=== PATIENT | female | born 1960 | race Caucasian/White ===

== ENCOUNTER 2018-03-28 09:09 | Emergency (ER) | payer MEDICARE, OTHER ==
[~2018-03-28] VITALS: Ht 162.6 cm; Wt 99.8 kg
[~2018-03-28 09:09] MED LIST: ABILIFY10 MG PO; ACYCLOVIR 400400 M1 PO; ACYCLOVIR 400400 MG; ALBUTEROL2.5 MG/31 INH; ALTOPREV; ALTOPREV20 MG PO; AMOXICILLIN 50500 MG PO; ASPIRIN BUFFER325 MG PO; ATROVENT HFA14 GM INH; AZITHROMYC200 MG/52 PO; BREO ELLIPTA 11 EACH INH; CALCIUM 500 +1 EAC5 PO; CELEBREX; CELEBREX 200 M200 M1 PO; CLONAZEPAM 0.50.5 M1 PO; CLOPIDOGREL; COMBIVENT INH; CYMBALTA; CYMBALTA PO; CYMBALTA30 MG PO; EFFEXOR XR75 MG PO; ESTRACE1 MG PO; GENTAMICIN SU3 MG/ML OP; HYDROCODON-ACE1 EAC7 PO; HYDROCODONE-AP1 EAC6 PO; HYOSCYAMINE0.375 M2 PO; IBUPROFEN 400400 M2 PO; IBUPROFEN 800800 M1 PO; IBUPROFEN 800800 MG PO; KEFLEX500 M1 PO; LEVSIN PO; LINZESS145 MCG PO; LOVASTAT20 PO; LOVASTATIN; MEDROLDOSEPACK PO; MUCINEX TA600 MG/TA1 PO; MULTIVITAMINS1 EAC7 PO; NEBULIZER MISCELL; NEXIUM; NORCO 5-325 TA1 EACH PO; OMEPRAZOLE40 MG PO; PENICILLIN VK500 MG PO; PERCOCET 5-3251 EACH PO; PREDNISONE 10 M10 M1 PO; PREDNISONE 10 M10 MG PO; PREDNISONE 20 M20 M1 PO; PREMARIN; PREMARIN0.625 MG PO; PREVACID PO; PROAIR HFA8.5 GM INH; SENNA PO; SENNA8.6 MG PO; SINGULAIR 10 MG10 M1 PO; TORADOL 10 MG T10 MG PO; TRAZADONE; TRAZODONE HCL100 MG PO; ULTRAM ER300 MG PO; VENTOLIN HFA 1818 GM INH; VENTOLIN17 GM INH; VICODIN 5-5001 EACH PO; VITAMINC500 PO; WELLBUTRIN XL150 M1; WELLBUTRIN XL300 MG PO; ZANTAC; ZANTAC 150MG T150 M1 PO; ZOFRAN ODT4 MG PO; ZOFRAN8 MG PO; ZPAK PO; [UNRECOGNIZED DRUG - REMARK]
[2018-03-28] MEDS ORDERED: PREDNISONE 20 M20 M1 PO (09:25)
[2018-03-28] MEDS ORDERED: ZPAK PO (09:25)
[2018-03-28 09:34] VITALS: BP 117/57
== END 2018-03-28 09:35 | disposition home or self-care (01) ==
LOC: M.ERS 09:09
DX: J40 Bronchitis, not specified as acute or chronic (principal); Z90.49 Acquired absence of other specified parts of digestive tract; Z90.710 Acquired absence of both cervix and uterus; Z88.5 Allergy status to narcotic agent; Z88.8 Allergy status to other drugs, medicaments and biological substances; Z87.891 Personal history of nicotine dependence

== ENCOUNTER 2018-09-18 15:43 | Emergency (ER) | payer MEDICARE, OTHER ==
[~2018-09-18] VITALS: Ht 160 cm; Wt 94.8 kg
[2018-09-18] MEDS ORDERED: GENTAMICIN OPH3.5 GM OPHTHALMIC (16:37)
[2018-09-18 18:29] VITALS: BP 115/65
== END 2018-09-18 18:30 | disposition home or self-care (01) ==
LOC: M.ERS 15:43
DX: H11.32 Conjunctival hemorrhage, left eye (principal); R51 Headache; J44.9 Chronic obstructive pulmonary disease, unspecified; Z90.49 Acquired absence of other specified parts of digestive tract; Z90.710 Acquired absence of both cervix and uterus; Z87.891 Personal history of nicotine dependence; Z88.5 Allergy status to narcotic agent; Z88.8 Allergy status to other drugs, medicaments and biological substances

== ENCOUNTER 2020-03-19 16:51 | Emergency (ER) | payer MEDICARE ==
[~2020-03-19] VITALS: Ht 162.6 cm; Wt 72.6 kg
[~2020-03-19 16:51] MED LIST changes: +GENTAMICIN OPH3.5 GM OPHTHALMIC
[2020-03-19] MEDS ORDERED: WELLBUTRIN SR150 MG PO (17:04)
[2020-03-19] MEDS ORDERED: AMITIZA 24 MCG24 MC1 PO (17:05)
[2020-03-19] MEDS ORDERED: LOVASTAT20 PO (17:05)
[2020-03-19] MEDS ORDERED: LEVO-T25 MCG PO (17:05)
[2020-03-19] MEDS ORDERED: OMEPRAZOLE 20 M20 M1 PO (17:05)
[2020-03-19] MEDS ORDERED: EFFEXOR XR150 MG PO (17:06)
[2020-03-19] MEDS ORDERED: 24HR ALLERGY REL5 MG PO (17:06)
[2020-03-19] MEDS ORDERED: DESYREL150 MG PO (17:07)
[2020-03-19 17:15] LABS: URINE BILIRUBIN NEGATIVE (Negative); URINE BLOOD TRACE (Negative); URINE CLARITY CLEAR; URINE COLOR YELLOW; URINE GLUCOSE-RANDOM NEGATIVE (Negative); URINE KETONES NEGATIVE (Negative); URINE LEUKOCYTES-REFLEX NEGATIVE (Negative); URINE NITRITE-REFLEX NEGATIVE (Negative); URINE PROTEIN TRACE (Negative); URINE SPECIFIC GRAVITY >= 1.030 (1.005-1.030); URINE UROBILINOGEN 0.2 E.U./dl (0.2-1.0)
[2020-03-19] MEDS ORDERED: MACROBID 100 M100 MG PO (18:12)
[2020-03-19] MEDS ORDERED: VOLTAREN GEL 1100 G1 TOP (18:12)
[2020-03-19 18:26] VITALS: BP 106/70
== END 2020-03-19 18:26 | disposition home or self-care (01) ==
LOC: M.ERS 16:51
PROVIDERS: Nurse Practitioner Family
DX: S30.0XXA Contusion of lower back and pelvis, initial encounter (principal); N30.90 Cystitis, unspecified without hematuria; J44.9 Chronic obstructive pulmonary disease, unspecified; Z90.49 Acquired absence of other specified parts of digestive tract; Z90.710 Acquired absence of both cervix and uterus; Z95.0 Presence of cardiac pacemaker; Z79.899 Other long term (current) drug therapy; Z87.891 Personal history of nicotine dependence; Z88.8 Allergy status to other drugs, medicaments and biological substances; Z88.5 Allergy status to narcotic agent; W18.39XA Other fall on same level, initial encounter; Y93.89 Activity, other specified; Y92.89 Other specified places as the place of occurrence of the external cause; Y99.8 Other external cause status

== ENCOUNTER 2020-04-27 15:24 | Emergency (ER) | payer MEDICARE ==
[~2020-04-27] VITALS: Ht 160 cm; Wt 69.4 kg
[~2020-04-27 15:24] MED LIST changes: +24HR ALLERGY REL5 MG PO; +AMITIZA 24 MCG24 MC1 PO; +DESYREL150 MG PO; +EFFEXOR XR150 MG PO; +LEVO-T25 MCG PO; +MACROBID 100 M100 MG PO; +OMEPRAZOLE 20 M20 M1 PO; +VOLTAREN GEL 1100 G1 TOP; +WELLBUTRIN SR150 MG PO
[2020-04-27] MEDS ORDERED: AJOVY AUTO225 MG/1.5 SUBQ (15:37)
[2020-04-27 16:04] LABS: ABSOLUTE BASOPHILS 0.1 thou/uL (0.0-0.2); ABSOLUTE EOSINOPHILS 0.4 thou/uL (0.0-0.7); ABSOLUTE LYMPHOCYTES 1.8 thou/uL (0.8-5.3); ABSOLUTE MONOCYTES 0.8 thou/uL (0.0-1.2); ABSOLUTE NEUTROPHILS 5.3 thou/uL (1.6-8.1); BASOPHILS 0.9 %; EOSINOPHILS 4.6 %; HEMOGLOBIN 14.7 gm/dL (12.0-15.0); LYMPHOCYTES 21.5 %; MCH 31.4 pg (26.0-34.0); MCHC 33.4 g/dL (28.0-37.0); MONOCYTES 9.2 %; MPV 7.4 fl. (7.2-11.1); NUCLEATED RBCS 0 /100WBC; PLATELET COUNT* 404 thou/uL (150-400); POLYS 63.8 %; RBC 4.68 mil/uL (4.20-5.00); RDW-CV 13.5 % (10.5-14.5); WBC 8.3 thou/uL (4.0-11.0)
[2020-04-27 16:13] LABS: CALCIUM 9.7 mg/dL (8.5-10.1); CREATININE 0.9 mg/dL (0.6-1.3); POTASSIUM 3.3 mmol/L (3.5-5.1)
[2020-04-27 16:18] LABS: ALBUMIN 3.3 g/dL (3.4-5.0); TOTAL BILIRUBIN 0.3 mg/dL (<0.1-1.0); TOTAL PROTEIN 7.6 g/dL (6.4-8.2)
[2020-04-27 17:44] LABS: URINE BILIRUBIN NEGATIVE (Negative); URINE BLOOD NEGATIVE (Negative); URINE CLARITY CLEAR; URINE COLOR YELLOW; URINE GLUCOSE-RANDOM NEGATIVE (Negative); URINE KETONES NEGATIVE (Negative); URINE LEUKOCYTES-REFLEX NEGATIVE (Negative); URINE NITRITE-REFLEX NEGATIVE (Negative); URINE PROTEIN NEGATIVE (Negative); URINE UROBILINOGEN 0.2 E.U./dl (0.2-1.0)
[2020-04-27] MEDS ORDERED: ZOFRAN 4 MG ORAL4 MG PO (18:09)
[2020-04-27] MEDS ORDERED: BENTYL 10 MG CA10 MG PO (18:09)
[2020-04-27 18:40] VITALS: BP 103/41
== END 2020-04-27 18:40 | disposition home or self-care (01) ==
LOC: M.ERS 15:24
PROVIDERS: Physician Assistant
DX: R19.7 Diarrhea, unspecified (principal); R10.31 Right lower quadrant pain; R10.32 Left lower quadrant pain; R11.2 Nausea with vomiting, unspecified; J44.9 Chronic obstructive pulmonary disease, unspecified; Z20.822 Contact with and (suspected) exposure to COVID-19; Z95.0 Presence of cardiac pacemaker; Z90.49 Acquired absence of other specified parts of digestive tract; Z90.711 Acquired absence of uterus with remaining cervical stump; Z79.899 Other long term (current) drug therapy; Z88.8 Allergy status to other drugs, medicaments and biological substances; Z88.5 Allergy status to narcotic agent; Z87.891 Personal history of nicotine dependence

== ENCOUNTER 2020-07-01 15:30 | Emergency (ER) | payer MEDICARE ==
[~2020-07-01] VITALS: Ht 160 cm; Wt 72.6 kg
[~2020-07-01 15:30] MED LIST changes: +AJOVY AUTO225 MG/1.5 SUBQ; +BENTYL 10 MG CA10 MG PO; +ZOFRAN 4 MG ORAL4 MG PO
[2020-07-01 16:33] LABS: ABSOLUTE BASOPHILS 0.1 thou/uL (0.0-0.2); ABSOLUTE EOSINOPHILS 0.1 thou/uL (0.0-0.7); ABSOLUTE LYMPHOCYTES 1.2 thou/uL (0.8-5.3); ABSOLUTE MONOCYTES 0.5 thou/uL (0.0-1.2); ABSOLUTE NEUTROPHILS 3.7 thou/uL (1.6-8.1); BASOPHILS 1.1 %; EOSINOPHILS 1.2 %; HEMATOCRIT 36.5 % (37.0-47.0); HEMOGLOBIN 12.1 gm/dL (12.0-15.0); LYMPHOCYTES 21.8 %; MCH 31.3 pg (26.0-34.0); MCHC 33.2 g/dL (28.0-37.0); MCV 94.1 fL (80.0-100.0); MONOCYTES 9.4 %; MPV 7.6 fl. (7.2-11.1); NUCLEATED RBCS 0 /100WBC; PLATELET COUNT* 241 thou/uL (150-400); POLYS 66.5 %; RBC 3.88 mil/uL (4.20-5.00); RDW-CV 13.8 % (10.5-14.5); WBC 5.6 thou/uL (4.0-11.0)
[2020-07-01 16:46] LABS: CALCIUM 8.7 mg/dL (8.5-10.1); CREATININE 0.7 mg/dL (0.6-1.3); POTASSIUM 3.8 mmol/L (3.5-5.1)
[2020-07-01 16:51] LABS: TOTAL BILIRUBIN 0.2 mg/dL (<0.1-1.0); TOTAL PROTEIN 5.9 g/dL (6.4-8.2)
[2020-07-01 17:11] LABS: URINE BILIRUBIN NEGATIVE (Negative); URINE BLOOD NEGATIVE (Negative); URINE CLARITY CLEAR; URINE COLOR YELLOW; URINE GLUCOSE-RANDOM NEGATIVE (Negative); URINE KETONES NEGATIVE (Negative); URINE LEUKOCYTES-REFLEX NEGATIVE (Negative); URINE NITRITE-REFLEX NEGATIVE (Negative); URINE PROTEIN NEGATIVE (Negative); URINE SPECIFIC GRAVITY >= 1.030 (1.005-1.030); URINE UROBILINOGEN 0.2 E.U./dl (0.2-1.0)
[2020-07-01 17:40] VITALS: BP 117/70
--- NOTE | 2020-07-03 09:47 | EKG ---
[place] [address] ELECTROCARDIOGRAM REPORT Name: KIRAARNOLDO LOW Room: 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 : 1960 Requested By: Inocencia Stern Order Number: [id number] MD: Venkat Malone Measurements Intervals [place] Rate: 70 P: MA: 127 QRS: 30 QRSD: 129 T: 10 QT: 417 QTc: 450 Interpretive Statements Atrial-paced complexes Right bundle branch block Compared to ECG 12/24/2016 14:22:54 No significant changes Electronically Signed On 07-03-2020 9:47:03 CDT by Venkat Malone [email or web address] <ELECTRONICALLY SIGNED> By: Venkat Malone MD, [facility] 07/03/20 0947 1604 1604 Venkat Malone MD, [facility] /EPI
== END 2020-07-01 17:41 | disposition home or self-care (01) ==
LOC: M.ERS 15:30
PROVIDERS: Physician Assistant
DX: S00.03XA Contusion of scalp, initial encounter (principal); S50.12XA Contusion of left forearm, initial encounter; S50.11XA Contusion of right forearm, initial encounter; S80.12XA Contusion of left lower leg, initial encounter; S80.11XA Contusion of right lower leg, initial encounter; J44.9 Chronic obstructive pulmonary disease, unspecified; K58.9 Irritable bowel syndrome, unspecified; Z90.49 Acquired absence of other specified parts of digestive tract; Z90.710 Acquired absence of both cervix and uterus; Z88.1 Allergy status to other antibiotic agents; Z88.8 Allergy status to other drugs, medicaments and biological substances; Z88.5 Allergy status to narcotic agent; W18.39XA Other fall on same level, initial encounter; Y93.89 Activity, other specified; Y92.89 Other specified places as the place of occurrence of the external cause; Y99.8 Other external cause status

== ENCOUNTER 2020-07-07 03:55 | Observation (INO) | payer MEDICARE ==
[~2020-07-07] VITALS: Ht 160 cm; Wt 79.4 kg
[2020-07-07] VITALS (15 sets, daily range): BP systolic 85–120; BP diastolic 42–95
[2020-07-07 04:20] LABS: URINE BILIRUBIN NEGATIVE (Negative); URINE BLOOD NEGATIVE (Negative); URINE CLARITY CLEAR; URINE COLOR YELLOW; URINE GLUCOSE-RANDOM NEGATIVE (Negative); URINE KETONES TRACE (Negative); URINE LEUKOCYTES-REFLEX NEGATIVE (Negative); URINE NITRITE-REFLEX NEGATIVE (Negative); URINE PROTEIN NEGATIVE (Negative); URINE UROBILINOGEN 0.2 E.U./dl (0.2-1.0)
[2020-07-07 04:39] LABS: ABSOLUTE LYMPHOCYTES 1.5 thou/uL (0.8-5.3); ABSOLUTE MONOCYTES 0.9 thou/uL (0.0-1.2); ABSOLUTE NEUTROPHILS 5.5 thou/uL (1.6-8.1); BASOPHILS 0.4 %; EOSINOPHILS 0.3 %; HEMATOCRIT 43.9 % (37.0-47.0); HEMOGLOBIN 14.4 gm/dL (12.0-15.0); LYMPHOCYTES 18.8 %; MCH 31.2 pg (26.0-34.0); MCHC 32.8 g/dL (28.0-37.0); MCV 95.2 fL (80.0-100.0); MPV 7.9 fl. (7.2-11.1); NUCLEATED RBCS 0 /100WBC; PLATELET COUNT* 295 thou/uL (150-400); POLYS 69.5 %; RBC 4.62 mil/uL (4.20-5.00)
[2020-07-07 04:48] LABS: CALCIUM 9.2 mg/dL (8.5-10.1); CREATININE 0.8 mg/dL (0.6-1.3); INR 0.9; POTASSIUM 3.5 mmol/L (3.5-5.1); PROTIME 9.8 Seconds (9.20-11.50)
[2020-07-07 05:01] LABS: ALBUMIN 3.7 g/dL (3.4-5.0); MAGNESIUM 2.1 mg/dL (1.8-2.4); TOTAL BILIRUBIN 0.4 mg/dL (<0.1-1.0); TOTAL PROTEIN 8.2 g/dL (6.4-8.2)
[2020-07-07 05:45] LABS: SALICYLATE < 2.8 mg/dL (2.8-20.0)
[2020-07-07 05:45] LABS: AMP/METHAMP Negative (Negative); BARBITURATES Negative (Negative); BENZODIAZEPINES POSITIVE (Negative); COCAINE Negative (Negative); METHADONE Negative (Negative); OPIATES POSITIVE (Negative); PCP Negative (Negative); THC POSITIVE (Negative)
[2020-07-07 05:51] LABS: ACETAMINOPHEN < 2 ug/mL (10-30)
--- NOTE | 2020-07-07 09:40 | NUR ---
AROUSED PT, A&OX2 NS INFUSING WIDE OPEN, NARCAN GIVEN. PT STATES SHE WANTS TO GO HOME. PT CALM AND VERY SLEEPY
--- NOTE | 2020-07-07 10:46 | NUR ---
RIGHT BASILIC VESSEL ACCESSED FOR 5 SAMOAN TRIPLE LUMEN PICC. LINE PRE-TRIMMED TO 42CM AND ADVANCED TO THE ZERO YUMI WITH NO RESISTANCE MET. UPPER ARM CIRCUMFERENCE ABOVE INSERTION SITE= 12". SHERLOCK MAGNET AND 3CG CONFIRMATION OF TIP TERMINATION AT THE CAVOATRIAL JUNCTION AT 1CM OUT OF INSERTION SITE. GUIDEWIRE REMOVED, LINE FLUSHED AND INSERTION SITE DRESSED. REPORT GIVEN TO CATHY CRUZ.
--- NOTE | 2020-07-07 10:54 | EKG ---
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
[2020-07-07] MEDS ORDERED: PERCOCET 10-321 EAC1 PO (11:02)
--- NOTE | 2020-07-07 18:49 | NUR ---
ALL ASSESSMENTS COMPLETED CHARTED. PT DROWSY AND CONFUSED THROUGH MY SHIFT; FALL RISK PRECAUTIONS IN PLACE FOR PATIENT SAFETY.
--- NOTE | 2020-07-07 23:35 | NUR ---
PT AWAKE AT THIS TIME. PT ALERT AND ORIENTED X4. PT REQUESTING HS SEROQUEL. PT INFORMED OF ADVERSE REACTION TO ANESTHESIA.
[2020-07-08] VITALS (11 sets, daily range): BP systolic 108–137; BP diastolic 55–79
[2020-07-08 06:09] LABS: HEMATOCRIT 36.8 % (37.0-47.0); MCH 30.8 pg (26.0-34.0); MCHC 32.5 g/dL (28.0-37.0); MCV 94.8 fL (80.0-100.0); RBC 3.88 mil/uL (4.20-5.00)
[2020-07-08 06:15] LABS: CALCIUM 8.2 mg/dL (8.5-10.1); CREATININE 0.6 mg/dL (0.6-1.3); POTASSIUM 3.7 mmol/L (3.5-5.1)
[2020-07-08] MEDS ORDERED: AMITIZA 24 MCG24 MC1 PO (08:20)
[2020-07-08] MEDS ORDERED: EYE DROPS ADVAN15 ML EA. EYE (08:21)
[2020-07-08] MEDS ORDERED: MINIVELLE1 EAC1 PO (08:25)
[2020-07-08] MEDS ORDERED: OTEZLA30 MG PO (08:26)
[2020-07-08] MEDS ORDERED: B-125000 MC1 PO (08:27)
[2020-07-08] MEDS ORDERED: OMEPRAZOLE40 MG PO (08:27)
[2020-07-08] MEDS ORDERED: PAXIL 20 MG TAB20 M1 PO (08:28)
[2020-07-08] MEDS ORDERED: GLUCOSAMINE &1 EACH PO (08:28)
[2020-07-08] MEDS ORDERED: NORCO5 PO (08:36)
[2020-07-08] MEDS ORDERED: PERCOCET 7.5-31 EAC1 PO (08:37)
== END 2020-07-08 09:46 | disposition home or self-care (01) ==
LOC: M.ERS 03:55 → M.TBA-ER 07:03 → M.ICU 11:32
PROVIDERS: Emergency Medicine; ADMIT Internal Medicine; ATTEND Internal Medicine
DX: G93.41 Metabolic encephalopathy (principal); I95.9 Hypotension, unspecified; J44.9 Chronic obstructive pulmonary disease, unspecified; K58.9 Irritable bowel syndrome, unspecified; Z95.0 Presence of cardiac pacemaker; Z87.11 Personal history of peptic ulcer disease; Z86.39 Personal history of other endocrine, nutritional and metabolic disease; Z90.710 Acquired absence of both cervix and uterus; Z90.49 Acquired absence of other specified parts of digestive tract; Z88.5 Allergy status to narcotic agent; Z88.8 Allergy status to other drugs, medicaments and biological substances; Z88.1 Allergy status to other antibiotic agents

== ENCOUNTER 2020-09-12 15:07 | Emergency (ER) | payer MEDICARE ==
[~2020-09-12] VITALS: Ht 165.1 cm; Wt 76.2 kg
--- NOTE | ~2020-09-12 | EMS ---
[facility] [address] [place] [address] EMS Patient Care Report Name: [facility]NOLDO MALONE [id number] Admission: 09/12/20 Attend Phys: Discharge: 09/14/20 Date of : 58 Report #: [id number] THIS REPORT FOR: //name// Report Transmitted: 09/21/2020 08:07 EMS Care Summary [facility] Incident [id number] @ 09/12/2020 13:52 Incident Location [address] [place] [address] Patient ARNOLDO MALONE Female, 60 Years 1960 Patient Address [address] [place] [address] Patient History Behavioral/Psychiatric Disorder, Patient Allergies No known allergies, Chief Complaint Psychiatric episode, combative toward facility sta Disposition Transported No Lights/[place] Dispatch Reason Psychiatric Problem/Abnormal Behavior/Suicide Attempt Transported To [facility] Narrative Medic 1 and Utility 1 was [facility] pt. that is combative toward the staff. [employer] enroute, scene not secured. Units arrived in the area and staged. Dispatched advised that [employer] was on scene, scene is secured. Units arrived on scene and made contact with facility physician. Pt. is a 60 y/o female, sitting upright in a chair, AOx3 with a GCS of 12. C/C pt. has presented with a psychiatric state and is [facility] [address] [place] [address] EMS Patient Care Report Name: ARNOLDO MALONE [id number] Admission: 09/12/20 Attend Phys: Discharge: 09/14/20 Date of : 58 Report #: [id number] combative towards the staff. Pt. has a behavioral/psychiatric Hx. and is on medications for her condition. Pt. was confused and while communicating with staff, was not making sense to them. Pt. was being restrained by staff. Facility was unable to medicate pt. for excited delirium. Pt. was administered 150mg Ketamine via IM. Pt. was administered O2 via NC at 2 lpm. Pt. had no response to the medication, pt. was still combative and uncooperative. A second dose of Ketamine was administered, 150mg via IM. Pt. began to calm down with second dose of medication. Pt. was transferred to the cot and secured. Restraints were applied to the pt. for transport. Pt. was loaded into the ambulance and secured. V/S obtained and monitored throughout the transport. 4 Lead ECG was obtained, Sinus Tach at a rate of 113 BPM. Pt. was calm for most of the transport. Receiving facility was contacted and report was given. Pt. became upset and was flailing around while giving report. Arrived at receiving facility, pt. was assigned to Bed #1 and report was given to receiving nurse and ER physician. Signatures obtained by receiving nurse for pt. and authorized sales service representative. Medic 1 returned to service. Initial Vitals @15:04P: 100,R: 16,BP: 135/70,GCS: 12,SpO2: 99,Revised Trauma: 11, @14:43P: 114,R: 16,BP: 143/73,GCS: 12,SpO2: 98,Revised Trauma: 11, @14:54P: 101,R: 16,BP: 142/91,GCS: 12,SpO2: 98,Revised Trauma: 11, Impression Behavioral/psychiatric episode Procedures @14:14Ketamine - 150 Milligrams (mg) - Intraosseous (IO)Response: Unchanged@14:26Ketamine - 150 Milligrams (mg) - Intraosseous (IO)Response: Unchanged@14:14Oxygen FlowRate: 2 Device: Nasal Cannula (NC) Response: UnchangedSucceeded Timeline 13:52,Call Received 13:52,Dispatched 13:55,En Route 13:57,On Scene 13:58,At Patient 14:14,Ketamine - 150 Milligrams (mg) - Intraosseous (IO),Response: Unchanged 14:14,Oxygen FlowRate: 2 Device: Nasal Cannula (NC) Response: UnchangedSucceeded, 14:26,Ketamine - 150 Milligrams (mg) - Intraosseous (IO),Response: Unchanged 14:43,BP: 143/73 M,PULSE: 114,RR: 16 R,SPO2: 98 Ox,ETCO2: ,BG: ,PAIN: ,GCS: 12, 14:45,[place] [address] EMS Patient Care Report Name: ARNOLDO MALONE [id number] Admission: 09/12/20 Attend Phys: Discharge: 09/14/20 Date of : 58 Report #: [id number] 14:54,BP: 142/91 M,PULSE: 101,RR: 16 R,SPO2: 98 Ox,ETCO2: ,BG: ,PAIN: ,GCS: 12, 15:04,At Destination 15:04,BP: 135/70 M,PULSE: 100,RR: 16 R,SPO2: 99 Ox,ETCO2: ,BG: ,PAIN: ,GCS: 12, 15:47,Call Closed Disclaimer v1.1 Copyright 2020 [employer] This EMS Care Summary contains data elements from the applicable legal record (which may be displayed differently). It is designed to provide pertinent information for the following purposes: continuity of care, clinical quality, and state data reporting. The complete legal record is available to ED staff and administrators of the receiving hospital in [facility]'s Patient Tracker. All data is provided "as is."
[~2020-09-12 15:07] MED LIST changes: +B-125000 MC1 PO; +EYE DROPS ADVAN15 ML EA. EYE; +GLUCOSAMINE &1 EACH PO; +MINIVELLE1 EAC1 PO; +NORCO5 PO; +OTEZLA30 MG PO; +PAXIL 20 MG TAB20 M1 PO; +PERCOCET 10-321 EAC1 PO; +PERCOCET 7.5-31 EAC1 PO
[2020-09-12 15:51] LABS: URINE BILIRUBIN NEGATIVE (Negative); URINE BLOOD NEGATIVE (Negative); URINE CLARITY CLEAR; URINE COLOR YELLOW; URINE GLUCOSE-RANDOM NEGATIVE (Negative); URINE KETONES 1+ (Negative); URINE LEUKOCYTES-REFLEX NEGATIVE (Negative); URINE NITRITE-REFLEX NEGATIVE (Negative); URINE PROTEIN NEGATIVE (Negative); URINE UROBILINOGEN 0.2 E.U./dl (0.2-1.0)
[2020-09-12 15:57] LABS: AMP/METHAMP Negative (Negative); BARBITURATES Negative (Negative); BENZODIAZEPINES POSITIVE (Negative); COCAINE Negative (Negative); METHADONE Negative (Negative); OPIATES Negative (Negative); PCP Negative (Negative); THC POSITIVE (Negative)
[2020-09-12 16:17] LABS: ABSOLUTE MONOCYTES 0.8 thou/uL (0.0-1.2); ABSOLUTE NEUTROPHILS 5.9 thou/uL (1.6-8.1); BASOPHILS 0.4 %; EOSINOPHILS 0.1 %; HEMATOCRIT 40.5 % (37.0-47.0); HEMOGLOBIN 13.7 gm/dL (12.0-15.0); LYMPHOCYTES 13.1 %; MCH 31.8 pg (26.0-34.0); MCHC 33.8 g/dL (28.0-37.0); MONOCYTES 10.4 %; NUCLEATED RBCS 0 /100WBC; PLATELET COUNT* 272 thou/uL (150-400); RDW-CV 13.2 % (10.5-14.5); WBC 7.7 thou/uL (4.0-11.0)
[2020-09-12 16:24] LABS: CALCIUM 8.6 mg/dL (8.5-10.1); CREATININE 0.7 mg/dL (0.6-1.3); POTASSIUM 3.6 mmol/L (3.5-5.1)
[2020-09-12 16:29] LABS: ALBUMIN 3.4 g/dL (3.4-5.0); TOTAL BILIRUBIN 0.4 mg/dL (<0.1-1.0); TOTAL PROTEIN 7.1 g/dL (6.4-8.2)
[2020-09-12 16:43] LABS: SALICYLATE < 2.8 mg/dL (2.8-20.0)
[2020-09-12 16:44] LABS: ACETAMINOPHEN < 2 ug/mL (10-30); ALCOHOL < 10 mg/dL (<10)
--- NOTE | 2020-09-13 15:31 | NUR ---
ELSIE GERMAN CONTACTED [facility] ([phone]) STATED BEDS ARE AVAILABLE REFERRAL PACKET FAXED ([phone]) WILL FOLLOW UP. GEOVANI QUINTANILLA ([phone]) SPOKE W/JESUS MANUEL SENT TO NURSE INTAKE PAGER LINE NUMBER LEFT AWAITING CB. SIGNATURE [facility] ([phone]) DECLINED PT. DUE TO CAPABILITY. [facility] ([phone]) DECLINED NO MEDICAL TUBING. [facility] ([phone]) NO IN UNIT. [facility] ([phone]) SPOKE WITH DANIEL AGUERO PT. WILL BE PLACED ON WAITING LIST BEDS WILL BE AVAILABLE FRIDAY- NEXT WEEK. REFERRAL PACKET FAXED. ([phone]) CALL BACK NUMBER LEFT FOR FOLLOW UP. CM TO CONTINUE TO FOLLOW FOR SAFE D/C PLANNING.
[2020-09-14 10:00] VITALS: BP 106/78
== END 2020-09-14 10:01 | disposition home or self-care (01) ==
LOC: M.ERS 15:07
PROVIDERS: Emergency Medicine Emergency Medical Services
DX: F29 Unspecified psychosis not due to a substance or known physiological condition (principal); Z20.822 Contact with and (suspected) exposure to COVID-19; Z79.899 Other long term (current) drug therapy

== ENCOUNTER 2020-09-23 00:44 | Emergency (ER) | payer MEDICARE | END 2020-09-23 00:55 | disposition left against medical advice (07) | LOC: M.ERS 00:44 | DX: Z53.21 Procedure and treatment not carried out due to patient leaving prior to being seen by health care provider (principal) ==